=== PATIENT | female | born 1940 | race Caucasian/White ===

== ENCOUNTER 2022-03-31 10:02 | Emergency (ER) | payer MEDICARE, OTHER, SELFPAY ==
[2022-03-31 10:12] VITALS: BP 125/70; PULSE 70; RESP 20; TEMP 36.8; O2SAT 97
--- NOTE | 2022-03-31 10:17 | ECG_ITS ---
Measurements Intervals [place] Rate: 62 P: 23 MD: 152 QRS: -45 QRSD: 106 T: 20 QT: 415 QTc: 422 Interpretive Statements SINUS RHYTHM LEFT ANTERIOR FASCICULAR BLOCK MINIMAL Q WAVES- HIGH LATERAL LEADS ABNORMAL ECG Electronically Signed On 03-31-2022 17:16:33 CDT by Romario Liang D.O.
--- NOTE | 2022-03-31 10:29 | ED.DIZZY ---
HPI - Dizziness General Chief Complaint: Dizziness Stated Complaint: Dizziness Time Seen by Provider: 03/31/22 11:01 Source: patient Mode of arrival: ambulatory Limitations: no limitations History of Present Illness HPI Narrative: 81-year-old female tested positive for COVID on 03/28 presented for complaints of an episode of dizziness today. She states she woke this morning drenched in sweat and when she stood up she felt dizzy. She laid back down and the dizziness resolved. Dizziness has not returned. Patient has been taking paxlovid since 03/28. States yesterday she was outside for about 9 hours doing yard work on her [place] acres. She states she drinks minimal water. Endorses feeling dry. No additional symptoms of chest pain, palpitations, shortness of breath, nausea, vomiting, fevers or chills. Related Data Home Medications Medication Instructions Recorded Confirmed lisinopril 40 mg tablet 40 mg PO DAILY 03/31/22 03/31/22 nirmatrelvir 300 mg (150 mg x 1 tablet PO BID 03/31/22 03/31/22 2)-ritonavir 100 mg tablet (EUA) (Paxlovid 300 mg () pravastatin 20 mg tablet 1 tablet PO DAILY 03/31/22 03/31/22 Allergies Allergy/AdvReac Type Severity Reaction Status Date / Time No Known Allergies Allergy Verified 03/31/22 10:26 Review of Systems Review of Systems: CONSTITUTIONAL: Denies body aches, fever, chills, or sweats. EYES: Denies visual changes, redness, or discharge. ENT: Denies rhinorrhea, congestion, sore throat, or otalgia. CARDIOVASCULAR: Denies chest pain, palpitations, or edema. RESPIRATORY: Denies cough or dyspnea. GASTROINTESTINAL: Denies abdominal pain, nausea, vomiting, or diarrhea. GENITOURINARY: Denies dysuria or hematuria. SKIN: Denies rash, itching, or wounds. MUSCULOSKELETAL: Denies back pain, joint pain, or myalgia. NEUROLOGIC: Denies headache, numbness, tingling, or weakness. All systems reviewed & are unremarkable except as noted in HPI and below PMFSH Comments At time of signature, I have reviewed and agree with nursing past medical, surgical, social and family history unless otherwise noted. Please see nursing chart for further information. There is no relevant family history pertinent to the presenting complaint Exam Narrative: GENERAL: Well-appearing EYES: EOMI. No redness or drainage. Conjunctivae normal. ENT: Mucous membranes dry No rhinorrhea. NECK: Normal AROM. Supple. CHEST: No respiratory distress. Clear to auscultation. HEART: Regular rate and rhythm. No murmur appreciated. Normal peripheral pulses. ABDOMEN: Soft, nontender, nondistended, normal active bowel sounds. SKIN: Warm, dry. Capillary refill normal. Poor skin turgor. NEURO: No focal deficits. Alert and oriented x3. Gait steady. Course Course Emergency Course: Patient is aware of diagnosis, understands and agrees to treatment plan. Anticipatory guidance given. Patient agrees to follow-up as directed and is aware of reasons to seek care at the emergency department. Portions of this record may have been created with voice recognition software Level of Care: Express Care Visit Vital Signs Vital signs: Vital Signs Temperature 98.2 F 03/31/22 10:12 Pulse Rate 70 03/31/22 10:12 Respiratory Rate 20 03/31/22 10:12 Blood Pressure 125/70 03/31/22 10:12 Pulse Oximetry 97 03/31/22 10:12 Oxygen Delivery Room Air 03/31/22 10:12 Temperature 98.2 F 03/31/22 10:12 Pulse Rate 70 03/31/22 10:12 Respiratory Rate 20 03/31/22 10:12 Blood Pressure 125/70 03/31/22 10:12 Pulse Oximetry 97 03/31/22 10:12 Oxygen Delivery Room Air 03/31/22 10:12 MDM - Dizziness MDM Narrative Medical decision making narrative: Patient is overall well-appearing. She denies any additional episodes of sweating or dizziness. EKG showed normal sinus rhythm rate 62. She is advised at length of signs and symptoms to go to the ER. She is advised to avoid extreme temperatures and increase her rosalva
== END 2022-03-31 11:18 | disposition home or self-care (01) ==
PROVIDERS: Emergency Provider Nurse Practitioner Family; PCP Family Medicine
DX: E86.0 Dehydration (principal)
CPT/HCPCS: 93005; 99203; G0463

== ENCOUNTER 2023-04-21 11:08 | Emergency (ER) | payer MEDICARE, OTHER, SELFPAY ==
[2023-04-21 11:22] VITALS: BP 147/92; PULSE 94; RESP 20; TEMP 37.4; O2SAT 96
--- NOTE | 2023-04-21 11:33 | ECG_ITS ---
Measurements Intervals [place] Rate: 69 P: 25 TN: 163 QRS: -41 QRSD: 106 T: 9 QT: 387 QTc: 417 Interpretive Statements SINUS RHYTHM WITH SINUS ARRHYTHMIA LEFT AXIS DEVIATION VOLTAGE CRITERIA FOR LVH MINIMAL Q WAVES- HIGH LATERAL LEADS BASELINE ARTIFACT- I, III, AVL, AVF BORDERLINE ECG COMPARED TO ECG 03/31/2022 10:37:22 SINUS ARRHYTHMIA NOW PRESENT Electronically Signed On 04-21-2023 12:55:20 CDT by Romario Liang D.O.
--- NOTE | 2023-04-21 11:45 | ED.DIZZY ---
HPI - Dizziness General Chief Complaint: Dizziness Stated Complaint: Dizziness/Feet/Leg Pain Source: patient and RN notes reviewed History of Present Illness HPI Narrative: 83 yo F presents to urgent care with complaints of dizziness and lightheadedness. Pt states she worked in the yard hard yesterday and believes she is dehydrated. Pt states she doesn't drink water b/c it makes her gag. Pt states she woke up in the middle of the night with muscle cramps. Pt states she tried to go to the bathroom at that time and she fell to the ground. Denies hitting her head or any LOC. Denies any chest pain, SOB, vomiting, diarrhea, abdominal pain, recent illness, fevers, chills, or MENJIVAR. Pt states she feels like she is going to pass out at times. Pt did drink a liquid IV last night. Related Data Home Medications Medication Instructions Recorded Confirmed lisinopril 40 mg tablet 40 mg PO DAILY 03/31/22 04/21/23 nirmatrelvir 300 mg (150 mg 1 tablet PO BID 03/31/22 04/21/23 x2)-ritonavir 100 mg tablet,dose pack (Paxlovid) pravastatin 20 mg tablet 1 tablet PO DAILY 03/31/22 04/21/23 Allergies Allergy/AdvReac Type Severity Reaction Status Date / Time No Known Allergies Allergy Verified 04/21/23 11:27 Review of Systems Review of Systems: CONSTITUTIONAL: Denies fever, chills, or sweats. EYES: Denies visual changes, redness, or discharge. ENT: Denies otalgia and sore throat CARDIOVASCULAR: Denies chest pain, palpitations, or edema. RESPIRATORY: Denies cough or dyspnea. GASTROINTESTINAL: Denies abdominal pain, nausea, vomiting, or diarrhea. GENITOURINARY: Denies dysuria or hematuria. SKIN: Denies rash or itching. MUSCULOSKELETAL: Denies back pain, joint pain, or myalgia. NEUROLOGIC: Lightheaded Pertinent positives per HPI. PMFSH Comments At the time of my signature, I reviewed and agree with the nursing past medical, surgical, social, and family history. There is no relevant family history pertinent to the patient complaint. Exam Narrative: GENERAL: This is a well-nourished, well-developed patient, in no apparent distress. HEAD: normocephalic, atraumatic. EYES: Sclera clear/white. Vision is grossly intact. EARS: External ears normal, auditory canals clear and without drainage. Hearing grossly intact. NOSE: External nose normal with no obvious nasal discharge, nares without redness, no rhinorrhea. THROAT: Mucous membranes moist, posterior pharynx clear. NECK: Neck supple, non-tender without lymphadenopathy, masses or thyromegaly. CARDIOVASCULAR: Regular rate and rhythm without murmurs, gallops, or rubs. RESPIRATORY: Clear to auscultation. Breath sounds equal bilaterally. No wheezes, rales, or rhonchi. GASTROINTESTINAL: Abdomen soft, non-tender, nondistended. Bowel sounds are active. No hepato-splenomegaly, or palpable masses. No guarding. SKIN: warm, intact with no suspicious lesions or rash, good texture and turgor. NEURO: awake, alert, and oriented to person, place and time. There were no obvious focal neurologic abnormalities. EXTREMITIES: No clubbing, cyanosis, or edema. No joint tenderness, effusion, or edema noted. BACK: Nontender without deformity or crepitus. No flank tenderness. Course Course Level of Care: Express Care Visit Vital Signs Vital signs: Vital Signs Temperature 99.3 F 04/21/23 11:22 Pulse Rate 94 04/21/23 11:22 Respiratory Rate 20 04/21/23 11:22 Blood Pressure 147/92 H 04/21/23 11:22 Pulse Oximetry 96 04/21/23 11:22 Oxygen Delivery Room Air 04/21/23 11:22 Temperature 99.3 F 04/21/23 11:22 Pulse Rate 94 04/21/23 11:22 Respiratory Rate 20 04/21/23 11:22 Blood Pressure 147/92 H 04/21/23 11:22 Pulse Oximetry 96 04/21/23 11:22 Oxygen Delivery Room Air 04/21/23 11:22 Reviewed MDM - Dizziness MDM Narrative Medical decision making narrative: Spoke to pt and she agrees to be transferred to the ER for further evaluation of her dizziness. EMS
--- NOTE | 2023-04-21 11:59 | PC.NURSE ---
NO URINE CULTURE WANTED PER [employer].
== END 2023-04-21 12:33 | disposition short-term general hospital (02) ==
PROVIDERS: Emergency Provider Nurse Practitioner Family; PCP Family Medicine
DX: R42 Dizziness and giddiness (principal); W19.XXXA Unspecified fall, initial encounter
CPT/HCPCS: 81003; 93005; 99215; G0463